=== PATIENT | male | born 1985 | race Caucasian/White ===

== ENCOUNTER 2017-09-28 11:01 | Emergency (ER) | payer SELFPAY ==
[~2017-09-28] VITALS: Ht 185.4 cm; Wt 102.1 kg
[2017-09-28] MEDS ORDERED: HYOSCYAMINE 0.125 MG (LEVSIN) TAB SL ONE (12:00)
--- NOTE | 2017-09-28 12:05 | ED Abdominal Pain ---
General Chief Complaint: Abdominal/GI Problems Stated Complaint: ABD PAIN/N Nursing Triage Note: AMB TO ROOM C/O LOW ABD PAIN WITH NAUSEA NO VOMITING Sepsis Screen: No Definite Risk History of Present Illness Time Seen By Provider: 11:50 Initial Comments 32-year-old male presents for abdominal pain, pain began on 09/26/17. He denies any vomiting or diarrhea. He has had nausea but states that it is not present at this time. He denies any fevers. He had a protein bar last evening with no nausea or vomiting. He's had coffee to drink today. No history of previous abdominal issues and no previous abdominal surgeries. Timing/Duration: 2-3 Days Severity/Quality: Mild Location: Generalized Abdomen Radiation: No Radiation Associated Symptoms: No Fever/Chills, No Fatigue, No Headache, No Heartburn, Nausea/Vomiting, No Syncope, No Weakness Allergies and Home Medications Allergies Coded Allergies: No Known Drug Allergies (Unverified , 09/28/17) Home Medications Ciprofloxacin HCl 500 Mg Tablet, 500 MG PO BID, #10 Ref 0 Prescribed by: MARSHA WILSON on 09/28/17 1245 Hyoscyamine Sulfate 0.125 Mg Tab.subl, 0.125 MG SL Q6H PRN for NAUSEA/VOMITING- 1ST LINE, #12 Ref 0 Prescribed by: MARSHA WILSON on 09/28/17 1245 Review of Systems Constitutional: no symptoms reported, see HPI Gastrointestinal: See HPI, Nausea, Poor Appetite All Other Systems Reviewed Negative Unless Noted: Yes Past Hactozf-Jlbgwn-Cfoewz Hx Patient Social History Alcohol Use: Denies Use Recreational Drug Use: No Drug of Choice: history opiate addiction, stopped in 2013, on Suboxone Smoking Status: Current Everyday Smoker Type Used: Electronic/Vapor Recent Foreign Travel: No Contact w/Someone Who Travel: No Recent Infectious Disease Expo: No Surgeries History of Surgeries: No Respiratory History of Respiratory Disorde: No Cardiovascular History of Cardiac Disorders: No Neurological History of Neurological Disord: No Psychosocial History of Psychiatric Problem: Yes Behavioral Health Disorders: Depression Reviewed Nursing Assessment Reviewed/Agree w Nursing PMH: Yes Physical Exam Vital Signs VS - Last 72 Hours, by Label 09/28/17 09/28/17 11:17 12:50 Temp 98.4 Pulse 62 62 Resp 18 18 B/P (MAP) 114/70 (85) Pulse Ox 96 96 O2 Delivery Room Air Capillary Refill : Less Than 3 Seconds General Appearance: WD/WN, no apparent distress HEENT: PERRL/EOMI, normal ENT inspection, TMs normal, pharynx normal Neck: non-tender, full range of motion, supple, normal inspection Respiratory: chest non-tender, lungs clear, normal breath sounds Cardiovascular: normal peripheral pulses, regular rate, rhythm, no edema Gastrointestinal: normal bowel sounds, soft, no organomegaly, no pulsatile mass , No distended, No guarding, No rebound, tenderness (generalized) Extremities: normal range of motion, non-tender, normal inspection, no pedal edema, no calf tenderness, normal capillary refill Neurologic/Psychiatric: no motor/sensory deficits, alert, normal mood/affect, oriented x 3 Progress/Results/Core Measures Results/Orders Lab Results Laboratory Tests Test 09/28/17 12:07 09/28/17 12:41 Range/Units Urine Color NITA H Urine Clarity CLEAR Urine pH 6 5-9 Urine Specific [place] 1.025 H 1.016-1.022 Urine Protein 2+ H NEGATIVE Urine Glucose (UA) 3+ H NEGATIVE Urine Ketones NEGATIVE NEGATIVE Urine Nitrite NEGATIVE NEGATIVE Urine Bilirubin NEGATIVE NEGATIVE Urine Urobilinogen 1 NORMAL MG/DL Urine Leukocyte Esterase 1+ H NEGATIVE Urine RBC (Auto) NEGATIVE NEGATIVE Urine RBC NONE /HPF Urine WBC 0-2 /HPF Urine Squamous Epithelial Cells RARE /HPF Urine Crystals NONE /LPF Urine Bacteria TRACE /HPF Urine Casts NONE /LPF Urine Mucus MODERATE H /LPF Urine Culture Indicated YES Glucometer 90 70-110 MG/DL My Orders Orders - MARSHA WILSON Ua Culture If Indicated (09/28/17 11:57) Hyoscyamine Sl Tablet (Levsin Sl Tablet) (09/28/17 12:00) Urine Culture (09/28/17 12:07) Accucheck Stat ONCE (09/28/17 12:34) Medications Given in ED Current Medications Medications Dose Ordered Sig/Emilia Route Start Time Stop Time Status Last Admin Dose Admin Hyoscyamine Sulfate 0.125 mg ONCE ONCE SL 09/28/17 12:00 09/28/17 12:01 DC 09/28/17 12:06 0.125 MG Vital Signs/I&O Vital Sign - Last 12Hours 09/28/17 09/28/17 11:17 12:50 Temp 98.4 Pulse 62 62 Resp 18 18 B/P (MAP) 114/70 (85) Pulse Ox 96 96 O2 Delivery Room Air Blood Pressure Mean: 85 Progress Note : Time: 11:50 Progress Note Initial evaluation completed, recommended UA and Levsin. 1240 Accucheck 90. Discharge planning and return precautions reviewed with the patient. All questions answered. Departure Impression Impression: Primary Impression: Nausea alone Additional Impression: Gastroenteritis Disposition: 01 HOME, SELF-CARE Condition: Improved Departure-Patient Inst. Decision time for Depature: 12:45 Referrals: NO,LOCAL PHYSICIAN (PCP/Family) Primary Care Physician Patient Instructions: Nausea and Vomiting, Adult (DC) Add. Discharge Instructions: Eat small, bland meals every 4 hours, increase water/sprite 16 oz every 2 hours while awake. Take Cipro as directed on prescription. Use Levsin as needed for nausea. Follow-up with your primary care provider if symptoms are not improving in 2-3 days. Return to emergency department if symptoms worsen. All discharge instructions reviewed with patient and/or family. Voiced understanding. Scripts Hyoscyamine Sulfate (Levsin-Sl) 0.125 Mg Tab.subl 0.125 MG SL Q6H Y for NAUSEA/VOMITING-1ST LINE, #12 TAB 0 Refills Prov: MARSHA WILSON 09/28/17 Ciprofloxacin HCl (Cipro) 500 Mg Tablet 500 MG PO BID, #10 TAB 0 Refills Prov: MARSHA WILSON 09/28/17 MARSHA WILSON Sep 28, 2017 12:05
[2017-09-28 12:13] LABS: BILIRUBIN,URINE NEGATIVE (NEGATIVE); CLARITY,URINE CLEAR; COLOR,URINE AMBER; GLUCOSE, URINE (UA) 3+ (NEGATIVE); KETONES,URINE NEGATIVE (NEGATIVE); LEUKOCYTE ESTERASE ,URINE 1+ (NEGATIVE); NITRITE,URINE NEGATIVE (NEGATIVE); PH,URINE 6 (5-9); PROTEIN,URINE 2+ (NEGATIVE); UROBILINOGEN,URINE 1 MG/DL (NORMAL)
[2017-09-28 12:24] LABS: BACTERIA,URINE TRACE /HPF; SQUAMOUS EPITHELIAL CELL,UR RARE /HPF; WBC,URINE 0-2 /HPF
[2017-09-28] MEDS ORDERED: CIPR-225 PO (12:45)
[2017-09-28] MEDS ORDERED: HYOS0.1283 SL (12:45)
[2017-09-28 12:50] VITALS: BP 114/70
== END 2017-09-28 12:49 | disposition home or self-care (01) ==
LOC: ER 11:06
DX: K52.9 Noninfective gastroenteritis and colitis, unspecified (principal); R11.0 Nausea; F32.9 Major depressive disorder, single episode, unspecified; F17.210 Nicotine dependence, cigarettes, uncomplicated
CPT/HCPCS: 81000; 82962; 87088; 99283

== ENCOUNTER → 2022-05-07 | Outpatient (CLI) | payer BC ==
[~2022-05-07] MED LIST: CIPR-225 PO; HYOS0.1283 SL
--- NOTE | 2022-05-07 16:03 | Diagnostic Imaging Report ---
INDICATION: Persistent headache x2 days. TECHNIQUE: Multiple contiguous axial images were obtained through the brain without the use of intravenous contrast. Auto Exposure Controls were utilized during the CT exam to meet ALARA standards for radiation dose reduction. COMPARISON: There is no prior study for comparison. FINDINGS: There were no extra-axial fluid collections. No intracranial hemorrhage. No intracranial mass or mass effect. No midline shift. Ventricles are normal in size and position. There were no focal parenchymal abnormalities in the brain. Calvarial windows appear unremarkable. Visualized portions of the sinuses show no fluid levels. IMPRESSION: Negative noncontrast brain CT. Dictated by: Dictated on workstation # [id number]
== END ==
LOC: RAD 15:45
PROVIDERS: ATTEND Internal Medicine
DX: R51.9 Headache, unspecified (principal)
CPT/HCPCS: 70450